=== PATIENT | female | born 1975 | race Caucasian/White ===

== ENCOUNTER 2023-06-02 08:30 | Day surgery (SDC) | payer BC ==
[~2023-06-02 08:30] MED LIST: Lactated Ringers 1,000 ML IV SCH; Sodium Chloride 0.9% 10 ML Syringe FLUSH PRN; Sodium Chloride 0.9% 10 ML Syringe FLUSH SCH
[2023-06-02] MEDS ORDERED: fentaNYL 100 MCG/2 ML SDV ONE (08:57)
[2023-06-02] MEDS ORDERED: Lidocaine 1% 4 ML ONE (08:58)
[2023-06-02] MEDS ORDERED: Propofol 200 MG/20 ML SDV ONE (08:58)
[2023-06-02] MEDS ORDERED: Midazolam 1 MG/ML 2 ML SDV ONE (08:58)
== END 2023-06-02 12:08 | disposition home or self-care (01) ==
LOC: JD.SDS 08:30
PROVIDERS: ATTEND Surgery
DX: D12.3 Benign neoplasm of transverse colon (principal); K31.89 Other diseases of stomach and duodenum; K57.30 Diverticulosis of large intestine without perforation or abscess without bleeding; K29.70 Gastritis, unspecified, without bleeding; K63.5 Polyp of colon; K64.9 Unspecified hemorrhoids; D50.9 Iron deficiency anemia, unspecified; E66.01 Morbid (severe) obesity due to excess calories; F41.9 Anxiety disorder, unspecified; F32.A Depression, unspecified; G47.00 Insomnia, unspecified; Z98.890 Other specified postprocedural states; Z79.899 Other long term (current) drug therapy; Z87.891 Personal history of nicotine dependence; Z68.42 Body mass index [BMI] 45.0-49.9, adult; Z98.84 Bariatric surgery status
CPT/HCPCS: 43239; 45380; J2250; J2704; J3010; J7120; 00813; J3490